=== PATIENT | female | born 1955 | race Caucasian/White ===

== ENCOUNTER 2022-11-14 10:56 | Day surgery (SDC) | payer MEDICARE, OTHER ==
[~2022-11-14 10:56] MED LIST: ALPRAZolam 0.25 MG TAB PO PRN; ALPRAZolam 0.5 MG TAB PO PRN; ASPIRIN 325 MG TAB PO STA; NITROGLYCERIN SL TABS 0.4 MG TAB SUBLINGUAL PRN; SODIUM CHLORIDE 0.9% 1,000 ML in EMPTY BAG 1 BAG IV SCH
[2022-11-14] MEDS ORDERED: lisinopriL 5 MG TAB PO STA (11:21)
[2022-11-14 11:39] VITALS: RESP 16; TEMP 97.9
[2022-11-14 11:54] LABS: Anisocytosis Slight; Basophils # (A) 0.1 k/uL (0-0.2); Basophils % (A) 1 %; Eosinophils # (A) 0.2 k/uL (0-0.7); Eosinophils % (A) 2 %; HCT 44.1 % (34.0-46.0); HGB 14.2 gm/dL (11.4-16.0); Lymphocytes # (A) 2.1 k/uL (1.0-4.8); Lymphocytes % (A) 22 %; MCH 27.3 pg (25.0-35.0); MCHC 32.3 g/dL (31.0-37.0); MCV 84.5 fL (80.0-100.0); Mean Platelet Volume 7.6; Monocytes # (A) 0.6 k/uL (0-1.0); Monocytes % (A) 6 %; Neutrophils # (A) 6.4 k/uL (1.3-7.7); Neutrophils % (A) 68 %; Platelet Count 268 k/uL (150-450); RBC 5.22 m/uL (3.80-5.40); RDW 16.4 % (11.5-15.5); WBC 9.5 k/uL (3.8-10.6)
[2022-11-14] MEDS ORDERED: IV FLUID CONTINUATION 1,000 ML IV ONE (11:55)
[2022-11-14] MEDS: BENZOCAINE SPRAY 1 CAN TOPICAL ONE ×2 (11:55→12:16)
[2022-11-14 11:56] LABS: African American GFR (CKD) >90 (>60 ml/min/1.73 sqM); Anion Gap 11 mmol/L; Blood Urea Nitrogen 8 mg/dL (7-17); Calcium 9.7 mg/dL (8.4-10.2); Carbon Dioxide 24 mmol/L (22-30); Chloride 105 mmol/L (98-107); Glucose 87 mg/dL (74-99); Non-African American GFR(CKD) >90 (>60 ml/min/1.73 sqM); Potassium 3.9 mmol/L (3.5-5.1); Sodium 140 mmol/L (137-145)
[2022-11-14] MEDS ORDERED: fentaNYL (PF) 50 MCG/ML 2 ML AMP ONE (12:03)
[2022-11-14] MEDS ORDERED: HEPARIN SODIUM 1,000 UN/ML (10ML VL) ONE (12:03)
[2022-11-14] MEDS ORDERED: MIDAZOLAM 2 MG/2 ML VIAL IV ONE ×2 (12:16→12:57)
[2022-11-14] MEDS: fentaNYL (PF) 50 MCG/1 ML VIAL IV ONE ×2 (12:17→13:04)
[2022-11-14] MEDS: MIDAZOLAM 2 MG/2 ML VIAL IV ONE ×2 (12:28→12:44)
--- NOTE | 2022-11-14 12:33 | P.PCN ---
Date of Procedure: 11/14/22 Operative Findings: TRANSESOPHAGEAL ECHOCARDIOGRAM DE ICER FINISHER: CRYSTAL JARVIS MD, RPVI INDICATION: Aortic stenosis SEDATION: Conscious sedation COMPLICATION: None LEVEL OF SEDATION Moderate with a sedation length of 15 minutes PROCEDURE DESCRIPTION: After obtaining an informed consent, the patient was brought to transesophageal echocardiogram room. Pulse oximetry and heart monitors were attached to the patient. The patient throat was sprayed using lidocaine. The patient was turned into left lateral position. After that a bite guard was placed. After an appropriate conscious sedation was initiated, the transesophageal echocardiogram was advanced through a bite guard into the mid esophagus. A 2-D echocardiogram images, color Doppler images, continuous wave images, pulse-wave images, of various cardiac structure were performed. After that the transesophageal echocardiogram probe was advanced into the stomach and fixed to obtain transgastric view was. The probe was brought into the mid esophagus. Inter-atrial septum was interrogated using 2D images, color Doppler images, and then contrast study. After that transesophageal echocardiogram was withdrawn out and upon withdrawing the descending thoracic aorta all the way up to the arch was evaluated. FINDING: The LV appeared to be mildly dilated was mildly impaired and an ejection fraction of 45%. The right ventricle appeared to be within normal limits for dimension and function. The left atrium and right atrium are severely dilated. The left atrial appendage appeared to be free from thrombus. The interatrial septum appeared to be intact. The aortic valve is thickened and calcified and appear to be trileaflet valve with evidence of severe aortic stenosis with a mean gradient of 44 mmHg. The mitral valve appeared to be also mildly thickened with mild to moderate MR. No evidence of pericardial effusion was identified CONCLUSION: 1. Mildly impaired LV function was EF around 45% 2. Severe aortic stenosis with a mean gradient of 44 mmHg. The aortic valve is thickened and calcified. Its hard to tell if the valve is trileaflet or bicuspid 3. [id number] mitral regurgitation 4. No evidence of pericardial effusion
[2022-11-14] MEDS ORDERED: LIDOCAINE 1% INJ 10MG/ML (5 ML VIAL-PF) SQ ONE (12:41)
[2022-11-14] MEDS ORDERED: VERAPAMIL SYRINGE (5 MG/10 ML) INTRAARTER ONE (12:44)
[2022-11-14] MEDS ORDERED: LIDOCAINE 1% INJ 10MG/ML (20 ML MDV) ONE (12:52)
[2022-11-14] MEDS ORDERED: LIDOCAINE 1% INJ 10MG/ML (20 ML MDV) SQ ONE (12:54)
[2022-11-14] MEDS ORDERED: IOPAMIDOL-370 100ML BTL INJ ONE (13:04)
[2022-11-14] MEDS ORDERED: RX INFO: IV CONTRAST WAS GIVEN 1 EACH MISC MISCELLANE PRN (13:07)
--- NOTE | 2022-11-14 13:12 | P.PCN ---
Date of Procedure: 11/14/22 Description of Procedure: CARDIAC CATHETERIZATION PERFORMING PHYSICIAN: Robert Thomas MD, RPVI PROCEDURE PERFORMED: 1. Selective right and left coronary angiogram 2. Ultrasound guided access of the right common femoral artery and right common femoral artery angiogram INDICATION: Aortic stenosis COMPLICATION: None APPROACH: Right common femoral artery LEVEL OF SEDATION: Moderate with sedation in length of 40 to minutes PROCEDURE DESCRIPTION: After obtaining an informed consent, the patient was brought to cardiac earth science laboratory technician. Local anesthesia was performed using lidocaine subcutaneously. Initially we accessed the right radial artery under ultrasound guidance, the micropuncture wire passed easily then I could not engage the coronary because of severe right subclavian tortuosity The right common femoral artery was cannulated using Seldinger technique, under ultrasound guidance, the guidewire passed easily, following that we advanced a 6 Tajik sheath dilator assembly, the wire and dilator were removed and sheath was flushed. Selective right and left coronary angiogram using a 6-Tajik JR4 and JL catheters. After that I did selective right common femoral artery angiogram The procedure was completed there was no complication. SELECTIVE CORONARY ANGIOGRAM: The right coronary artery: A large caliber vessel and a dominant vessel. The RCA has mild disease distally. Left main: Is angiographically normal. Bifurcates into LCx and LAD The left circumflex: The LCx is nondominant vessel was mild disease in the proximal portion The left anterior descending artery: Large-caliber vessel was mild diffuse disease only. Gives rises into a medium size diuretics with no high-grade stenosis identified CONCLUSION: 1. Mild to moderate nonobstructive coronary artery disease POSTPROCEDURE MANAGEMENT: The patient to be evaluated at the [facility]
[2022-11-14] MEDS ORDERED: SODIUM CHLORIDE 0.9% 1,000 ML IV SCH (13:15)
[2022-11-14] MEDS ORDERED: oxyCODONE ER 15 MG TAB.ER.12H PO STA (14:22)
[2022-11-14 16:40] VITALS: BP 181/77; PULSE 54
== END 2022-11-14 17:11 | disposition home or self-care (01) ==
LOC: CATHCVL 10:56
PROVIDERS: ATTEND Internal Medicine Interventional Cardiology
DX: I25.10 Atherosclerotic heart disease of native coronary artery without angina pectoris (principal); I08.0 Rheumatic disorders of both mitral and aortic valves; I48.0 Paroxysmal atrial fibrillation; E11.9 Type 2 diabetes mellitus without complications; I10 Essential (primary) hypertension; E78.5 Hyperlipidemia, unspecified; E78.2 Mixed hyperlipidemia; Z79.01 Long term (current) use of anticoagulants; Z79.82 Long term (current) use of aspirin; Z79.84 Long term (current) use of oral hypoglycemic drugs; Z79.85 Long-term (current) use of injectable non-insulin antidiabetic drugs; Z79.899 Other long term (current) drug therapy; Z88.2 Allergy status to sulfonamides; Z88.8 Allergy status to other drugs, medicaments and biological substances
CPT/HCPCS: 93312; 93320; 93325; 93454; 76937; 80048; 85025; 99152; 99153 ×2; C1769 ×4; C1760; C1894 ×2; J2250; J2001 ×2; Q9967; J3010

== ENCOUNTER → 2022-11-28 | Outpatient (CLI) | payer MEDICARE, OTHER ==
[2022-11-28 10:02] LABS: Anisocytosis Slight; Basophils # (A) 0.1 k/uL (0-0.2); Basophils % (A) 1 %; Eosinophils # (A) 0.4 k/uL (0-0.7); Eosinophils % (A) 4 %; HCT 43.9 % (34.0-46.0); Hypochromasia Slight; Lymphocytes # (A) 2.8 k/uL (1.0-4.8); Lymphocytes % (A) 30 %; MCH 27.6 pg (25.0-35.0); MCHC 31.8 g/dL (31.0-37.0); MCV 86.6 fL (80.0-100.0); Mean Platelet Volume 7.8; Monocytes # (A) 0.6 k/uL (0-1.0); Monocytes % (A) 6 %; Neutrophils # (A) 5.2 k/uL (1.3-7.7); Neutrophils % (A) 57 %; Platelet Count 293 k/uL (150-450); RBC 5.07 m/uL (3.80-5.40); RDW 16.3 % (11.5-15.5); WBC 9.2 k/uL (3.8-10.6)
[2022-11-28 10:17] LABS: Appearance,Urine Clear (Clear); Bilirubin,Urine Negative (Negative); Blood,Urine Negative (Negative); Color,Urine Light Yellow; Glucose,Urine (UA) 4+ (Negative); Ketones,Urine Negative (Negative); Leukocyte Esterase,Urine Trace (Negative); Nitrite,Urine Negative (Negative); Protein,Urine Negative (Negative); RBC,Urine 1 /hpf (0-5); Specific Gravity,Urine 1.018 (1.001-1.035); Squamous Epithelial Cell,Urine <1 /hpf (0-4); Urobilinogen,Urine <2.0 mg/dL (<2.0); WBC,Urine 5 /hpf (0-5)
[2022-11-28 10:27] LABS: Partial Thromboplastin Time 27.1 sec (22.0-30.0); Prothrombin Time 10.9 sec (9.0-12.0)
[2022-11-28 10:33] LABS: ALT 16 U/L (4-34); AST 25 U/L (14-36); African American GFR (CKD) 87 (>60 ml/min/1.73 sqM); Albumin 4.2 g/dL (3.5-5.0); Albumin/Globulin Ratio 1.2; Alkaline Phosphatase 105 U/L (38-126); Anion Gap 9 mmol/L; Blood Urea Nitrogen 11 mg/dL (7-17); Calcium 9.5 mg/dL (8.4-10.2); Carbon Dioxide 25 mmol/L (22-30); Chloride 105 mmol/L (98-107); Globulin 3.6 g/dL; Glucose 170 mg/dL (74-99); Magnesium 1.9 mg/dL (1.6-2.3); Non-African American GFR(CKD) 76 (>60 ml/min/1.73 sqM); Sodium 139 mmol/L (137-145); Total Bilirubin 0.7 mg/dL (0.2-1.3); Total Protein 7.8 g/dL (6.3-8.2)
[2022-11-28 10:35] LABS: Potassium 4.7 mmol/L (3.5-5.1)
[2022-11-28 10:40] LABS: NT-Pro-B-Type Natriuretic Pept 2300 pg/mL
--- NOTE | 2022-11-28 11:30 | US ---
EXAMINATION TYPE: US carotid duplex BILAT DATE OF EXAM: 11/28/2022 COMPARISON: NONE CLINICAL INDICATION: Female, 67 years old with history of I351; heart surgery TECHNIQUE: Carotid duplex ultrasound examination. Indirect Doppler criteria was utilized. FINDINGS: EXAM MEASUREMENTS: RIGHT: Peak Systolic Velocity (PSV) cm/sec ----- Right CCA: 41.6 ----- Right ICA: 67.7 ----- Right ECA: 54.6 ICA/CCA ratio: 1.6 RIGHT: End Diastole cm/sec ----- Right CCA: 0 ----- Right ICA: 19.8 ----- Right ECA: 0 LEFT: Peak Systolic Velocity (PSV) cm/sec ----- Left CCA: 56.5 ----- Left ICA: 120.5 ----- Left ECA: 50.7 ICA/CCA ratio: 2.1 LEFT: End Diastole cm/sec ----- Left CCA: 0 ----- Left ICA: 28.9 ----- Left ECA: 5.7 VERTEBRALS (direction of flow): Right Vertebral: Antegrade Left Vertebral: Antegrade Rhythm: Normal MUSHROOM PICKER NOTES: No significant stenosis seen IMPRESSION: Less than 50% stenosis of the bilateral carotid bifurcation. There is low to no flow during diastole involving the common carotid artery and right common carotid artery unsure if this is secondary to so nographer technique. Spectral waveforms do appear to go to 0. Criteria for Assigning % of Stenosis / Diameter reduction (Estimation based on the indirect measurements of the internal carotid artery velocities (ICA PSV). 1. Normal (no stenosis)=ICA PSV < 125 cm/s: ratio < 2.0: ICA EDV<40 cm/s. 2. Less than 50% stenosis=ICA PSV < 125 cm/s: ratio < 2.0: ICA EDV<40 cm/s. 3. 50 to 69% stenosis=ICA PSV of 125 to 230 cm/s: ration 2.0 ? 4.0: ICA EDV 40-100 cm/s. 4. Greater than 70% stenosis to near occlusion= ICA PSV > 230 cm/s: ratio > 4.0: ICA EDV > 100 cm/s. 5. Near occlusion= ICA PSV velocities may be low or undetectable: variable ratio and ICA EDV. 6. Total occlusion=unable to detect flow.
--- NOTE | 2022-11-28 13:50 | CT ---
EXAMINATION TYPE: CT TAVR Planning DATE OF EXAM: 11/28/2022 HISTORY: 67-year-old female Nonrheumatic aortic (Valve) insufficiency CT DLP: 3025.90 mGycm Automated Exposure Control for Dose Reduction was Utilized. CONTRAST: CT scan of the chest, abdomen and pelvis is performed with IV Contrast, patient injected with 125 mL of Isovue 370. COMPARISON: None TECHNIQUE: Helical imaging obtained through the chest, abdomen and pelvis during arterial phase leo brian administration of radiographic contrast intravenously. FINDINGS: See report from [email or web address] regarding preprocedural planning CHEST: Lower Neck and Thyroid: Retropharyngeal course of the bilateral ICAs. Heterogeneous and enlarged left lobe of the thyroid gland measuring up to 4.6 cm. Dedicated thyroid ultrasound to further evaluate. Lungs: Mild emphysematous change. Central Airway: No significant findings Pleura: No significant findings Pulmonary Arteries: Borderline caliber measuring up to 2.5 cm. This may reflect underlying pulmonary hypertension. Heart and Pericardium: Borderline size. No pericardial effusion. LAD and RCA coronary artery calcific ations are present. Lymph Nodes: Calcified right hilar nodes suggesting prior granulomatous disease. No thoracic lymph ad enopathy by CT size criteria. Mediastinum & Esophagus: No significant findings ABDOMEN/PELVIS: Please note arterial phase of the imaging limits detailed evaluation of the solid abdominal organs. Liver: No significant findings Spleen: No significant findings Kidneys: No significant findings Adrenal Glands: No significant findings Pancreas: No significant findings Gallbladder: Surgically absent. Bowel and Mesentery: Status post sleeve gastrectomy. Status post cholecystectomy. No dilated small chris wel. Mild sigmoid diverticulosis. Mild stool burden. No dilated small bowel, free fluid, or free air. Normal appendix. Lymph Nodes: No significant findings Urinary Bladder: No significant findings Pelvic Organs: No significant findings Other: 5.0 cm smooth, thin-walled oval fluid collection in the subcutaneous adipose layer along the u mbilicus. Some generalized anasarca change along the abdomen and pelvis. Other Lines/Tubes/Devices/Hardware: None Bones: End-stage [id number] degenerative change left shoulder. Severe degenerative change right curtis ulder. Anterior wedging of T6 and T7, age indeterminate but likely chronic given the lack of surround ing soft tissue swelling. Advanced spondylotic changes throughout the lumbar spine. IMPRESSION: 1. Heterogeneous and enlarged left lobe of the thyroid gland measuring up to 4.6 cm. Recommend furthe r evaluation with thyroid ultrasound to assess for any suspicious nodules that would warrant FNA. 2. COPD with mild emphysema and possible pulmonary arterial hypertension. 3. A 5 cm smooth, thin-walled oval fluid collection in the subcutaneous adipose layer along the umbil icus. The exact etiology is unclear. Possible urachal remnant. Correlate with physical exam findings. 4. Mild sigmoid diverticulosis.
[2022-11-28 16:47] LABS: Chol/HDL Ratio 3.99 Ratio; LDL Cholesterol,Calculated 90.8 mg/dL (0.0-131.0)
[2022-11-28 17:59] LABS: Hepatitis A Antibody IgM Nonreactive; Hepatitis B Core IgM Nonreactive; Hepatitis B Surface Antigen Nonreactive; Hepatitis C IgG Antibody Nonreactive
== END | disposition home or self-care (01) ==
LOC: LABWHC1 09:14
PROVIDERS: ATTEND Thoracic Surgery (Cardiothoracic Vascular Surgery)
DX: Z01.818 Encounter for other preprocedural examination (principal); Z51.81 Encounter for therapeutic drug level monitoring; I35.1 Nonrheumatic aortic (valve) insufficiency; E87.8 Other disorders of electrolyte and fluid balance, not elsewhere classified; I35.0 Nonrheumatic aortic (valve) stenosis; E11.9 Type 2 diabetes mellitus without complications; N28.9 Disorder of kidney and ureter, unspecified; E78.5 Hyperlipidemia, unspecified; Z79.899 Other long term (current) drug therapy; E07.9 Disorder of thyroid, unspecified; Z79.01 Long term (current) use of anticoagulants; R58 Hemorrhage, not elsewhere classified; R35.0 Frequency of micturition
CPT/HCPCS: 94150; 83880; 80061; 80053; 80074; 84443; 83735; 85025; 85610; 85730; 81001; 87086; 83036; 93880; 71275; 36415 ×2; 74174; 93005; Q9967

== ENCOUNTER 2022-12-20 06:18 | Inpatient (IN) | payer MEDICARE, OTHER ==
[~2022-12-20 06:18] MED LIST changes: -ALPRAZolam 0.25 MG TAB PO PRN; -ALPRAZolam 0.5 MG TAB PO PRN; +ASPIRIN 325 MG TAB PO ONE; -ASPIRIN 325 MG TAB PO STA; +ATORVASTATIN 10 MG TAB PO ONE; +CLEVIDIPINE BUTYRATE 25 MG in EMPTY BAG 1 BAG IV PRN; +CLOPIDOGREL 75 MG TAB PO ONE; +ELECTROLYTE-A SOLUTION 1,000 ML with POTASSIUM CHLORIDE 100 MEQ, MAGNESIUM SULFATE 16 M... IV PRN; +INSULIN REGULAR 100 UNIT in SODIUM CHLORIDE 0.9% 100 ML IV PRN; +LACTATED RINGERS 1,000 ML IV SCH; +METOPROLOL TARTRATE 25 MG TAB PO ONE; -NITROGLYCERIN SL TABS 0.4 MG TAB SUBLINGUAL PRN; +NITROGLYCERIN-D5W PMX 25 MG/250 ML BTL IV PRN; +PROTAMINE SULFATE 250 MG in EMPTY BAG 1 BAG IV PRN; -SODIUM CHLORIDE 0.9% 1,000 ML in EMPTY BAG 1 BAG IV SCH; +SODIUM CHLORIDE 0.9% 500 ML 500 ML INTRAARTER PRN; +TRANEXAMIC ACID 2,000 MG in SODIUM CHLORIDE 0.9% 80 ML IV PRN
[2022-12-20] MEDS ORDERED: SODIUM CHLORIDE 0.9% 1,000 ML IV ONE (06:35)
[2022-12-20 06:51] LABS: Glucose,Whole Blood 127 mg/dL (70-110)
[2022-12-20] MEDS ORDERED: fentaNYL (PF) 50 MCG/ML 2 ML AMP ONE (07:48)
[2022-12-20] MEDS ORDERED: PROPOFOL 10 MG/ML 20 ML VIAL IV ONE (07:48)
[2022-12-20] MEDS ORDERED: NEOSTIGMINE 1 MG/ML 10 ML VIAL ONE (07:48)
[2022-12-20] MEDS ORDERED: MIDAZOLAM 2 MG/2 ML VIAL ONE (07:48)
[2022-12-20] MEDS ORDERED: SUCCINYLCHOLINE CHLORIDE 200 MG/10 ML VIAL IV ONE (07:48)
[2022-12-20] MEDS ORDERED: GLYCOPYRROLATE 0.2 MG/ML 2 ML VIAL ONE (07:48)
[2022-12-20] MEDS ORDERED: hydrALAZINE HCL 20 MG/ML 1 ML VIAL ONE (07:48)
[2022-12-20] MEDS ORDERED: ROCURONIUM 10 MG/ML (5 ML VIAL) IV ONE (07:48)
[2022-12-20] MEDS ORDERED: ePHEDrine 50 MG/ML 1 ML VIAL ONE (07:48)
[2022-12-20] MEDS ORDERED: HEPARIN SODIUM,PORCINE 10,000 UNIT/ML 1 ML VIAL ONE (07:48)
[2022-12-20] MEDS ORDERED: PROTAMINE SULFATE 10 MG/ML 5 ML VIAL IV ONE (07:48)
[2022-12-20] MEDS ORDERED: LIDOCAINE 2% INJ 20 MG/ML (2 ML VIAL) ONE (07:48)
[2022-12-20] MEDS ORDERED: ACETAMINOPHEN TAB 325 MG TAB PO PRN (08:58)
[2022-12-20] MEDS ORDERED: ONDANSETRON 4 MG/2 ML VIAL IVP PRN (08:58)
[2022-12-20] MEDS ORDERED: IPRATROPIUM-ALBUTEROL 3 ML NEB INHALATION PRN (08:58)
[2022-12-20] MEDS ORDERED: LACTATED RINGERS 1,000 ML IV SCH (09:00)
[2022-12-20] MEDS ORDERED: DEXTROSE 50% SYRINGE 50 ML IVP PRN ×2 (09:04)
[2022-12-20] MEDS ORDERED: NON FORMULARY DRUG (Dulaglutide [Trulicity] 0.75 MG/0.5 ML Each) SQ SCH (09:15)
[2022-12-20] MEDS ORDERED: IOPAMIDOL-370 100ML BTL INJ ONE (09:19)
--- NOTE | 2022-12-20 09:24 | P.PCN ---
Date of Procedure: 12/20/22 Operative Findings: TRANSCATHETER AORITC VALVE REPLACEMENT OPERATIVE REPORT PROCEDURE PERFORMED: 1. Percutaneous Aortic Valve Implantation using a 23 mm Bagley Adama Valve 2. Transesophageal echocardiography (performed by anesthesia) 3. Ultrasound guided access and repair of right femoral artery access site by Perclose closure device. 4. Placement of temporary pacemaker wire. 5. Aortic root angiography INDICATIONS: 1. 67 year-old with a history of severe symptomatic aortic valve stenosis. The patient was experiencing shortness of breath consistent with NYHA class II PERFORMING PHYSICIANS: 1. Robert Thomas MD Interventional Cardiology. 3. Jose Swartz MD, Cardiothoracic Surgeon. SEDATION: General anesthesia provided by anesthesia, see separate note APPROACH: Right and left femoral artery via percutaneous approach PROCEDURE DESCRIPTION: The patient was discussed at valve clinic with multidisciplinary approach with cardiothoracic surgeon as well as turning sander operator and thought better treated with TAVR. Risks, benefits, and alternatives of the procedure had been explained to the patient who understood the risks and agreed to proceed. After consents were obtained, patient was brought to the transcatheter aortic valve implantation room in the cardiac boot and shoe laborer and general anesthesia was provided by the anesthesiologist (see separate report). Once full body sterile prep was performed, right subclavian venous access was obtained and a temporary pacemaker was screwed in, performed by cardiothoracic surgery. Pacing threshholds were checked and deemed appropriate. Next the left femoral artery waw accessed using a modified Seldinger technique, ultrasound guidance and micropuncture technique. A 6 [place] Rabi sheath was placed in the left femoral artery. Next, a 6-[place] pigtail catheter was advanced into the aorta and positioned in the aortic root, aortic root angiography was performed to determine optimal deployment angle. The right femoral artery was accessed using modified Seldinger technique, micropuncture technique and under direct ultrasound guidance. Femoral angiogram was done showing access in the common femoral artery and a 6Fr sheath was placed. Next preclose technique was performed using a two Perclose. Next a 0.035 Safari wire was placed in the Aorta via a pigtail catheter. Next a 6F- AL1 catheter was advanced over a wire to the aortic root. A straight wire was advanced through the catheter and used to cross the severely stenotic valve. The AL1 was then exchanged for a 6Fr pigtail catheter and pressure measurements were obtained. The 0.035 Safari wire was then positioned in the apex. Next a 23 mm Bagley was advanced. The valve was then positioned across the aortic valve and confirmed with aortic root angiography. The valve was then deployed in proper position using slow deployment and with rapid pacing in conjuncture with aortic root angiography and SARAH. The delivery system was withdrawn back into the arch and an aortic root injection in conjunction with SARAH demonstrated a satisfactory result. There was mild para valvular leak. There was no evidence of any other significant abnormalities. The preclose Perclose was then deployed in the right femoral artery and hemostasis was achieved. Subsequently rim catheter was advanced from the left groin were we did selective right common femoral artery angiogram and that showed good hemostasis. The left femoral angiogram demonstrated an arteriotomy in the common femoral artery and this was repaired using a 6F angioseal device with complete hemostasis. The temporary venous pacemaker was sutured in place. The patient was then transported to the ICU in hemodynamically stable condition, requiring no pressor support. COMPLICATIONS: None RECOMMENDATIONS: The patient will be monitored in the ICU for hemodynamic and electrical stability. Patient will be on aspirin and Plavix.
[2022-12-20 09:49] LABS: Glucose,Whole Blood 95 mg/dL (70-110)
--- NOTE | 2022-12-20 09:56 | XR ---
EXAMINATION TYPE: XR chest 1V portable DATE OF EXAM: 12/20/2022 9:49 AM COMPARISON: CT TAVR planning 11/28/2022 TECHNIQUE: XR chest 1V portable Portable AP radiograph of the chest. CLINICAL INDICATION:Female, 67 years old with history of Post Operative Cardiac Surgery; FINDINGS: Lungs/Pleura: There is no evidence of pleural effusion, focal consolidation, or pneumothorax. Chroni c senescent parenchymal change. Pulmonary vascularity: Unremarkable. Heart/mediastinum: Cardiomediastinal silhouette is enlarged. Postsurgical changes from TAVR. Musculoskeletal: No acute osseous pathology. Bilateral shoulder arthropathy. IMPRESSION: Postsurgical changes from TAVR. No focal consolidation.
[2022-12-20 10:09] LABS: Anisocytosis Slight; Basophils # (A) 0.1 k/uL (0-0.2); Basophils % (A) 1 %; Eosinophils # (A) 0.3 k/uL (0-0.7); Eosinophils % (A) 4 %; HCT 36.6 % (34.0-46.0); Hypochromasia Slight; Lymphocytes # (A) 2.5 k/uL (1.0-4.8); Lymphocytes % (A) 30 %; MCH 27.9 pg (25.0-35.0); MCHC 32.8 g/dL (31.0-37.0); MCV 85.2 fL (80.0-100.0); Mean Platelet Volume 7.8; Monocytes # (A) 0.4 k/uL (0-1.0); Monocytes % (A) 4 %; Neutrophils # (A) 4.8 k/uL (1.3-7.7); Neutrophils % (A) 59 %; Platelet Count 204 k/uL (150-450); RBC 4.29 m/uL (3.80-5.40); RDW 16.2 % (11.5-15.5); WBC 8.1 k/uL (3.8-10.6)
[2022-12-20 10:18] LABS: Ionized Calcium 4.9 mg/dL (4.5-5.3)
[2022-12-20 10:22] LABS: INR 1.2 (<1.2); Partial Thromboplastin Time 28.3 sec (22.0-30.0); Prothrombin Time 12.3 sec (9.0-12.0)
[2022-12-20 10:24] LABS: ALT 17 U/L (4-34); AST 25 U/L (14-36); African American GFR (CKD) >90 (>60 ml/min/1.73 sqM); Alkaline Phosphatase 85 U/L (38-126); Anion Gap 6 mmol/L; Blood Urea Nitrogen 8 mg/dL (7-17); Calcium 8.2 mg/dL (8.4-10.2); Carbon Dioxide 24 mmol/L (22-30); Chloride 108 mmol/L (98-107); Glucose 97 mg/dL (74-99); Magnesium 1.8 mg/dL (1.6-2.3); Non-African American GFR(CKD) >90 (>60 ml/min/1.73 sqM); Potassium 3.5 mmol/L (3.5-5.1); Sodium 138 mmol/L (137-145); Total Bilirubin 0.6 mg/dL (0.2-1.3)
[2022-12-20 11:31] LABS: Glucose,Whole Blood 94 mg/dL (70-110)
--- NOTE | 2022-12-20 11:44 | P.ANPRN ---
Procedure Note - Anesthesia - SARAH Intraop Pre Bypass SARAH Intraop - Anesthesia Indication: Transcatheter aortic valve replacement Date of Procedure: 12/20/22 Pre-operative Diagnosis: Severe aortic stenosis Post-operative Diagnosis: Severe aortic stenosis status post transcatheter aortic valve replacement Surgeon: Jose Swartz Ejection Fraction: Other (45 to 50%) Regional Wall Motion Abnormalities: None Left Ventricle Hypertrophy: No R. Ventricle Function: Normal Aortic Valve: calcified aortic valve with peak gradient of 62 mm of Hg and mean gradient of 42 mmHg Anatomy: Trileaflet Aortic Stenosis: Severe Aortic Regurgitation: None Mitral Stenosis: None Mitral Regurgitation: Trace Tricuspid Stenosis: None Tricuspid Regurgitation: Trace Pulmonic Stenosis: None Pulmonic Regurgitation: None R. Atrial Dilation: No R. Atrial PFO: No L. Atrial Dilation: No Aortic Dissection: No Aortic Calcification: None Plural Effusion: None
--- NOTE | 2022-12-20 11:45 | P.OP ---
Date of Procedure: 12/20/22 Preoperative Diagnosis: Symptomatic tricuspid calcific aortic stenosis Postoperative Diagnosis: Same Procedure(s) Performed: Percutaneous transfemoral transcatheter aortic valve replacement with 23 mm Bagley Adama 2 transcatheter aortic valve prosthesis Implants: 23 mm Bagley Adama 2 valve prosthesis Anesthesia: GETA Surgeon: Jose Swartz (Cardiovascular surgeon) Hot Dip Galvanizer #1: Robert Thomas (sports nutritionist) Hot Dip Galvanizer #2: Sanjay Amezcua (Nurse practitioner) Estimated Blood Loss (ml): 10 IV fluids (ml): 1,000 Pathology: none sent Condition: stable Disposition: ICU Indications for Procedure: 67-year-old morbidly obese woman with or performance status presents withworsening dyspnea and known severe aortic valvular stenosis. She was felt to be high risk for surgery given her extreme morbid obesity and poor performance status and was recommended to undergo transcatheter aortic valve replacement. Operative Findings: Significant gradient was noted across the aortic valve. Post valve deployment SARAH demonstrated trivial aortic insufficiency with excellent valve positioning and expansion. Completion angiography showed good flow through the femoral system with no evidence of leak and no narrowing. Description of Procedure: Patient was brought to the cardiac catheterization laboratory placed supine on the table. General anesthesia was induced, patient was intubated and SARAH probe was placed. The anterior torso and bilateral groins were sterilely prepped and draped. Right subclavian vein was punctured with an 18-gauge needle and guidewire was placed into the right atrium and introducer sheath was placed and a screw-in ventricular lead was manipulated into the apex of the right ventricle and secured at its exit site from the skin. It was tested and noted to have excellent thresholds and good capture. Bilateral femoral access was obtained under ultrasound guidance. On the left long 6-Guyanese sheath was placed up into the descending thoracic aorta. On the right 6-Guyanese sheath was placed and then 2 Perclose devices were placed an 8-Guyanese sheath was placed and this was exchanged for a 14 Bagley sheath over a stiff wire. The patient was systemically heparinized and a CTs were maintained greater than 250 during the procedure. Pigtail catheter was threaded through the left groin into the right coronary cusp and the valve was crossed from the right side. Pigtail catheter placed in the apex of the ventricle. Transvalvular gradients were measured. Safari wire was placed in the apex of the ventricle. 23 mm Bagley Adama 2 valve had been loaded on the back table and the valve delivery system was brought up onto the field. Was advanced over the Safari wire into the descend ing thoracic aorta. The balloon was pulled back into the valve and then the valve was advanced around the aortic arch and across the aortic valve. Pressure was pulled back and the valve positioned and then deployed under rapid ventricular pacing. Excellent deployment was obtained with trivial paravalvular leak on SARAH. The deployment system was pulled back and out of the patient. Heparin was reversed with protamine. The 47-Guyanese sheath was removed from the right groin and the 2 Perclose devices secured with excellent hemostasis. Completion angiography demonstrated good flow through the femoral system with no leak. Sheath was removed on the left and the femoral artery closed with an Angio-Seal. Good hemostasis was noted throughout and the patient was awakened and transferred to the ICU in stable condition.
--- NOTE | 2022-12-20 11:46 | P.ANPRN ---
Procedure Note - Anesthesia - SARAH Intraop Post Bypass SARAH Intraop Post Bypass Procedure Performed: Transcatheter aortic valve replacement Ejection Fraction: Other (44-50%) Regional Wall Motion Abnormalities: None R. Ventricle Function: Normal Aortic Valve: Prosthetic aortic valve in situ, appears to be seated well. Mean gradient across the valve is 6 mm of Hg. Peak gradient 12 mmHg. Trace paravalvular aortic regurgitation seen. Mitral Valve: Unchanged Tricuspid: Unchanged Pulmonic: Unchanged Aortic Dissection: No
[2022-12-20] MEDS: oxyCODONE ER 15 MG TAB.ER.12H PO SCH ×2 (12:12→20:13)
[2022-12-20] MEDS: INSULIN ASPART (NovoLOG) 100 UNIT/ML VIAL SQ SCH ×3 (12:14→21:13)
[2022-12-20] MEDS ORDERED: POTASSIUM CHLORIDE ER 20 MEQ TAB.ER PO STA (14:13)
[2022-12-20 14:57] VITALS: BMI 54.2
[2022-12-20 16:35] LABS: Glucose,Whole Blood 110 mg/dL (70-110)
[2022-12-20 21:00] LABS: Glucose,Whole Blood 113 mg/dL (70-110)
[2022-12-20] MEDS ORDERED: DAPAGLIFLOZIN PROPANEDIOL 10 MG TABLET PO SCH (21:00)
[2022-12-20] MEDS ORDERED: SENNOSIDES-DOCUSATE SODIUM 1 EACH TAB PO SCH (21:00)
[2022-12-20] MEDS ORDERED: INSULIN DETEMIR (LEVEMIR) 100 UNIT/ML SYR SQ SCH (21:00)
[2022-12-20] MEDS: HEPARIN SODIUM,PORCINE/PF 5,000 UNIT/0.5 ML SYRINGE SQ SCH (23:16)
--- NOTE | 2022-12-21 04:16 | CONS ---
CONSULTATION CHIEF COMPLAINT: Aortic stenosis. HISTORY OF PRESENT ILLNESS: This is a 67-year-old obese female who was brought in for an elective aortic valve replacement for aortic stenosis which has been symptomatic. REVIEW OF SYSTEMS: She has had no syncope, neurologic problems, chest pain, shortness of breath, abdominal pain, nausea, vomiting, diarrhea, melena, hematochezia, jaundice, renal failure, dysuria, frequency, urgency, incontinence, etc. Past medical history, family history and personal and social histories can all be found in her admitting summary. PHYSICAL EXAMINATION: VITAL SIGNS: Blood pressure is 118/72 with a pulse of 83 and regular, respirations are 25 and she is afebrile. GENERAL: She appeared to be obese. Color was good. Skin was dry. HEAD, EARS, EYES, NOSE, MOUTH AND THROAT: Normal. CHEST: Clear with good breath sounds bilaterally. CARDIAC: Demonstrated sinus rhythm. ABDOMEN: Protuberant. EXTREMITIES: Normal. IMPRESSION: 1. Aortic stenosis. 2. Obesity. PLAN: No change in her planned intervention. MMODL / IJN: [id number] /
[2022-12-21 06:40] LABS: Glucose,Whole Blood 92 mg/dL (70-110)
[2022-12-21] MEDS: INSULIN ASPART (NovoLOG) 100 UNIT/ML VIAL SQ SCH ×2 (06:59→12:06)
[2022-12-21] MEDS ORDERED: PANTOPRAZOLE 40 MG TABLET PO SCH (07:30)
--- NOTE | 2022-12-21 07:43 | XR ---
EXAMINATION TYPE: XR chest 1V portable DATE OF EXAM: 12/21/2022 Comparison: 12/20/2022 Clinical History: 67-year-old female Post Operative Cardiac Surgery Findings: Endovascular aortic valve replacement noted. Heart borderline in size. Interstitial densities remain unchanged. No consolidation or pleural effusion. Extrarenal right sided right ventricular pacer lead. Impression: Similar interstitial densities, possible mild pulmonary vascular congestion.
[2022-12-21] MEDS: oxyCODONE ER 15 MG TAB.ER.12H PO SCH (08:22)
[2022-12-21] MEDS: HEPARIN SODIUM,PORCINE/PF 5,000 UNIT/0.5 ML SYRINGE SQ SCH (08:22)
[2022-12-21] MEDS ORDERED: ASPIRIN 81 MG PO SCH (09:00)
[2022-12-21] MEDS ORDERED: MAGNESIUM HYDROXIDE 2,400 MG/30 ML CUP PO PRN (09:00)
[2022-12-21] MEDS ORDERED: bisacodyL 10 MG SUPP RECTAL PRN (09:00)
[2022-12-21] MEDS ORDERED: DAPAGLIFLOZIN PROPANEDIOL 10 MG TABLET PO SCH (09:00)
[2022-12-21] MEDS ORDERED: PREGABALIN 25 MG CAP PO SCH (09:00)
[2022-12-21] MEDS ORDERED: lisinopriL 5 MG TAB PO SCH (09:00)
[2022-12-21] MEDS ORDERED: RIVAROXABAN 2.5 MG TABLET PO SCH (09:00)
[2022-12-21] MEDS ORDERED: ATORVASTATIN 40 MG TAB PO SCH (09:00)
[2022-12-21 11:13] LABS: ALT 16 U/L (4-34); AST 37 U/L (14-36); African American GFR (CKD) >90 (>60 ml/min/1.73 sqM); Albumin 3.7 g/dL (3.5-5.0); Alkaline Phosphatase 91 U/L (38-126); Anion Gap 10 mmol/L; Blood Urea Nitrogen 7 mg/dL (7-17); Calcium 8.9 mg/dL (8.4-10.2); Carbon Dioxide 21 mmol/L (22-30); Chloride 105 mmol/L (98-107); Glucose 83 mg/dL (74-99); Magnesium 1.9 mg/dL (1.6-2.3); Non-African American GFR(CKD) >90 (>60 ml/min/1.73 sqM); Sodium 136 mmol/L (137-145); Total Bilirubin 0.8 mg/dL (0.2-1.3); Total Protein 7.2 g/dL (6.3-8.2)
[2022-12-21 11:20] LABS: Potassium 4.7 mmol/L (3.5-5.1)
--- NOTE | 2022-12-21 11:22 | CA ---
Transthoracic Echo Report Name: Dannielle Landry Age: 67 Gender: F : 1955 Exam Date: 12/21/2022 07:58 Exam Location: [facility] Ht (in): 58 Wt (lb): 259 Ordering Physician: Prachi Alvarez Attending/Referring Phys: [id number], Kim Pediatric Assistant Araceli Figueroa RDCS Procedure CPT: Indications: post TAVR Cardiac Hx: TAVR Technical Quality: Technically difficult study Contrast 1: Lumason Total Dose (mL): 3 Contrast 2: Total Dose (mL): MEASUREMENTS (Male / Female) Normal Values 2D ECHO LV Diastolic Diameter PLAX 4.6 cm 4.2 - 5.9 / 3.9 - 5.3 cm LV Systolic Diameter PLAX 3.1 cm IVS Diastolic Thickness 1.5 cm 0.6 - 1.0 / 0.6 - 0.9 cm LVPW Diastolic Thickness 1.4 cm 0.6 - 1.0 / 0.6 - 0.9 cm LV Relative Wall Thickness 0.6 RV Internal Dim ED PLAX 2.6 cm LVOT Diameter 1.9 cm LA Systolic Diameter LX 3.5 cm 3.0 - 4.0 / 2.7 - 3.8 cm LV Diastolic Volume MOD BP 79.7 cm??? 67 - 155 / 56 - 104 cm??? LV Systolic Volume MOD BP 24.1 cm??? 22 - 58 / 19 - 49 cm??? LV Ejection Fraction MOD BP 69.8 % >= 55 % LV Cardiac Index MOD BP 1246.2 cm???/min???m??? LV Diastolic Volume MOD 4C 81.5 cm??? LV Systolic Volume MOD 4C 21.3 cm??? LV Ejection Fraction MOD 4C 73.9 % LV Cardiac Index MOD 4C 1348.4 cm???/min???m??? LV Diastolic Length 4C 8.2 cm LV Systolic Length 4C 6.7 cm LV Diastolic Volume MOD 2C 76.6 cm??? LV Systolic Volume MOD 2C 27.3 cm??? LV Ejection Fraction MOD 2C 64.4 % LV Cardiac Index MOD 2C 1104.4 cm???/min???m??? LV Diastolic Length 2C 8.4 cm LV Systolic Length 2C 6.7 cm LA Volume 84.0 cm??? 18 - 58 / 22 - 52 cm??? M-MODE Aortic Root Diameter MM 3.2 cm MV E Point Septal Separation 0.5 cm DOPPLER AV Peak Velocity 257.2 cm/s AV Peak Gradient 26.5 mmHg AV Mean Velocity 199.2 cm/s AV Mean Gradient 17.2 mmHg AV Velocity Time Integral 60.9 cm LVOT Peak Velocity 157.8 cm/s LVOT Peak Gradient 10.0 mmHg AV Area Cont Eq pk 1.7 cm??? MV Area PHT 4.4 cm??? MV Deceleration Time 196.3 ms TR Peak Velocity 237.1 cm/s TR Peak Gradient 22.5 mmHg Right Ventricular Systolic Press 25.9 mmHg FINDINGS Left Ventricle Left ventricular ejection fraction is estimated at 55-60 %. Left ventricular cavity size normal. Moderately increased septal wall thickness. Moderately increased posterior wall thickness. Normal left ventricular wall motion. Right Ventricle Normal right ventricular size. Right ventricular systolic pressure within normal limits. Right Atrium Normal right atrial size. Left Atrium Severely increased left atrial volume. Mildly increased left atrial area. Mitral Valve Structurally normal mitral valve. No mitral stenosis, or prolapse.mild mitral annular calcification. Mild mitral regurgitation Aortic Valve Post TAVR AOV with a peak gradient of 27 mmHg and a mean gradient of 17 mmHg. Peak velocity 257 cm/s Tricuspid Valve Tricuspid valve not well visualized. Mild tricuspid regurgitation. Pulmonic Valve Pulmonic valve not well visualized. Pericardium Normal pericardium. No pericardial effusion. Aorta Normal size aortic root and proximal ascending aorta. CONCLUSIONS Technically difficult study. Lumason ECHO contrast used for improved visualization of the endocardial borders (inadequate visualization of two or more contiguous segments). 1. Normal left ventricle size and systolic function 2. Bioprosthetic aortic valve with mean gradient of 17 mmHg and no evidence of regurgitation 4. Mild tricuspid and mitral regurgitation Previewed by: Dr. Lore Gonzalez MD (Electronically Signed) Final Date: 21 December 2022 11:21
[2022-12-21 11:28] LABS: Ionized Calcium 4.6 mg/dL (4.5-5.3)
[2022-12-21 11:50] LABS: Glucose,Whole Blood 78 mg/dL (70-110)
[2022-12-21 11:51] LABS: Anisocytosis Slight; Basophils # (A) 0.1 k/uL (0-0.2); Basophils % (A) 1 %; Eosinophils # (A) 0.1 k/uL (0-0.7); Eosinophils % (A) 2 %; HCT 37.8 % (34.0-46.0); HGB 12.7 gm/dL (11.4-16.0); Lymphocytes # (A) 1.2 k/uL (1.0-4.8); Lymphocytes % (A) 16 %; MCH 28.2 pg (25.0-35.0); MCHC 33.6 g/dL (31.0-37.0); MCV 83.9 fL (80.0-100.0); Mean Platelet Volume 8.5; Monocytes # (A) 0.6 k/uL (0-1.0); Monocytes % (A) 9 %; Neutrophils # (A) 5.1 k/uL (1.3-7.7); Neutrophils % (A) 71 %; Platelet Count 177 k/uL (150-450); RDW 16.6 % (11.5-15.5); WBC 7.2 k/uL (3.8-10.6)
--- NOTE | 2022-12-21 12:48 | P.DS ---
Providers Date of admission: 12/20/22 06:18 Expected date of discharge: 12/21/22 Attending physician: Robert Thomas Consults: 12/20/22 06:00 Consult to Anesthesia Routine Consulting Provider: Anesthesia,Services Consult Reason/Comments: Cardiac Surgery Pre-Op 12/20/22 08:06 Consult Physician Routine Consulting Provider: Jose Swartz Consult Reason/Comments: post TAVR Do you want consulting provider notified?: Already Contacted Primary care physician: Red Puente Hospital Course: MEDICAL HISTORY: Calcified aortic valve with severe symptomatic aortic valve stenosis Hypertension Hyperlipidemia Diabetes mellitus type 2 Persistent paroxysmal atrial fibrillation on Xarelto on an outpatient basis Morbid obesity with a BMI of 54.2 kg/m Chronic back pain Lifetime nonsmoker PROCEDURE: 1. Percutaneous aortic valve implantation using a 23 mm Bagley Adama valve under SARAH and fluoroscopy guidance 2. Transesophageal echocardiography performed by anesthesia 3. Ultrasound-guided access and repair of right femoral artery access site by Perclose closure device 4. Placement of temporary pacemaker wire 5. Aortic root angiography HISTORY OF PRESENT ILLNESS: This is a 67-year-old female patient who follows on an outpatient basis with Dr. Puente for primary care and Dr. Thomas for her cardiology care. She has a known history of severe aortic valve stenosis and has been symptomatic with increased exertional dyspnea as well as feeling fatigue. She had been referred to structural heart clinic for evaluation for transcatheter aortic valve replacement after heart catheterization and transesophageal echocardiogram were completed. Echocardiography demonstrated systolic function with EF 45%, aortic valve area 0.7 cm with a peak/mean g radient 83/44 mmHg. Heart catheterization showed mild nonobstructive coronary artery disease. After workup was completed an STS risk score was calculated along with incremental risk and the patient was felt to be an intermediate risk for surgical aortic valve replacement, therefore transcatheter aortic valve replacement was recommended. The usual course of TAVR was discussed in detail the patient, risks and benefits were reviewed, shared decision making between cardiology, cardiothoracic surgery, and the patient/family took place, and the patient consented to proceed with the TAVR procedure. HOSPITAL COURSE: The patient was brought to the hospital on 12/20/2022, was taken to the extended stay area, prepared in the usual fashion, and subsequently taken to the cardiac catheterization laboratory where Dr. Thomas and Dr. Swartz completed a TAVR procedure under general anesthesia with fluoroscopy and SARAH. The valve was deployed under rapid ventricular pacing and proceeded without event. At the end of the procedure there was peak/mean gradient of 12/6 mmHg, trace paravalvular aortic valve regurgitation, and hemodynamics were felt to be acceptable. Upon completion of the procedure the patient was extubated and was transferred to the cardiovascular intensive care unit where she was recovered and monitored hemodynamically. Her oxygen was titrated down, she was tolerating an oral diet, her pain was controlled, follow-up TTE demonstrated a left ventricular systolic function to be normal with an ejection fraction of 55-60%, it also demonstrated post-TAVR AOV with a peak gradient of 27 mmHg, a mean gradient of 17 mmHg and a peak philosophy of 257 cm/s and she was ready to be discharged to home on postoperative day #1. She received written and verbal instruction regarding his medications, activity restrictions, signs and symptoms requiring physician notification, and her follow-up appointments. Plan - Discharge Summary Discharge Rx Participant: No New Discharge Prescriptions: New Acetaminophen Tab [Tylenol] 650 mg PO Q4HR PRN tab PRN Reason: Fever And/ Or Mild Pain (1-3) Sennosides-Docusate Sodium [Senokot-S] 2 each PO HS PRN tab PRN Reason: Constipation Continue lisinopriL [Zestril] 5 mg PO DAILY Rivaroxaban [Xarelto] 2.5 mg PO BID Pregabalin 25 mg PO DAILY Insulin Detemir (Levemir) [Levemir] 60 units SQ HS Dulaglutide [Trulicity] 0.75 mg SQ WE Dapagliflozin Propanediol [Farxiga] 1 tab PO HS oxyCODONE HCL [OxyCONTIN] 30 mg PO Q12H Discharge Medication List Dapagliflozin Propanediol [Farxiga] 1 tab PO HS 11/09/22 [History] Dulaglutide [Trulicity] 0.75 mg SQ WE 11/09/22 [History] Insulin Detemir (Levemir) [Levemir] 60 units SQ HS 11/09/22 [History] Pregabalin 25 mg PO DAILY 11/09/22 [History] Rivaroxaban [Xarelto] 2.5 mg PO BID 11/09/22 [History] lisinopriL [Zestril] 5 mg PO DAILY 11/09/22 [History] oxyCODONE HCL [OxyCONTIN] 30 mg PO Q12H 11/09/22 [History] Acetaminophen Tab [Tylenol] 650 mg PO Q4HR PRN tab 12/20/22 [Rx] Sennosides-Docusate Sodium [Senokot-S] 2 each PO HS PRN tab 12/20/22 [Rx] Follow up Appointment(s)/Referral(s): Red Puente MD [Primary Care Provider] - As Needed Robert Thomas MD [STAFF PHYSICIAN] - 01/02/23 1:45 pm (Your appointment 01/02 is for groin check with Dr. Thomas. You also have 30 day and 1 year follow up echo and appointments as scheduled: 30 day echo 02/26/23 @ 2:45 pm 30 day appointment w/ Dr. Thomas 02/26/23 @ 7:45 am 1 year echo 12/11/23 @ 2:30 pm 1 year appointment w/ Dr. Thomas 12/11/23 @ 11:15 am at the [facility] Clinic,Structural Heart [NON-STAFF] - 02/26/23 2:00 pm (you also have a TAVR clinic appointment 12/11/23 @ 12:30 pm) Ambulatory/Diagnostic Orders: Complete Blood Count w/diff [LAB.AMB] Location: None Selected Complete Blood Count w/diff [LAB.AMB] Location: None Selected Comprehensive Metabolic Panel [LAB.AMB] Location: None Selected Comprehensive Metabolic Panel [LAB.AMB] Location: None Selected Activity/Diet/Wound Care/Special Instructions: DISCHARGE INSTRUCTIONS: 1. No driving for 1 week, or until physician gives their ok. 2. No lifting, pushing, or pulling more than 5-10 pounds for 1 week. 3. Hold both groins when you cough or sneeze for the next 2 weeks. Bruising is common, but report increased swelling, pain or fever >101F 4. Shower daily. No pool, hot tub, or bathtub for 1 week 5. No powders, lotions, ointments on incisions. 6. No straining, including for bowel movements. Use stool softner if necessary 7. Stairs are not an issue. Go slowly, using handrail and take 1 step at a time. Ambulate several times daily 8. Continue pain control per as needed orders. 9. Take only the medications listed on your discharge form 10. Eat low salt (limited to 2 grams or 2000 milligrams) daily, avoid adding salt, avoid canned/processed foods 11. Take your weight daily in the morning and record, bring with you to your follow up appointments 12. Keep all follow up appointments. You will need a valve clinic appointment at 30 days and 1 year post procedure for follow up 13. You have been referred to and are expected to begin Cardiac Rehab in approximately 4 weeks. For any questions or concerns please call your valve coordinators: Prachi or Elvin @ Discharge Disposition: HOME SELF-CARE
[2022-12-21 13:22] VITALS: BP 138/90; PULSE 52; RESP 18; TEMP 98
--- NOTE | 2022-12-21 19:58 | PN ---
PROGRESS NOTE DATE OF SERVICE: 12/21/2022 CHIEF COMPLAINT: Status post TAVR. HISTORY OF PRESENT ILLNESS: This lady is doing well and is having no problems. She expects to go home soon. PHYSICAL EXAMINATION: CHEST: Clear. CARDIAC: Normal with sinus rhythm. VITAL SIGNS: Normal. NEUROLOGIC: She is intact. IMPRESSION: Status post transcatheter aortic valve replacement for aortic valve stenosis. PLAN: Probably home today. MMODL / IJN: [id number] /
== END 2022-12-21 13:58 | disposition home or self-care (01) | DRG 267 ==
LOC: 2ORMAIN 06:18 → 2SICU 09:01
PROVIDERS: ADMIT Internal Medicine Interventional Cardiology; ATTEND Internal Medicine Interventional Cardiology
PROC: 5A1223Z Performance of Cardiac Pacing, Continuous (ICD-10-PCS; 2022-12-20)
PROC: 02HK3JZ Insertion of Pacemaker Lead into Right Ventricle, Percutaneous Approach (ICD-10-PCS; 2022-12-20)
PROC: 02H63JZ Insertion of Pacemaker Lead into Right Atrium, Percutaneous Approach (ICD-10-PCS; 2022-12-20)
PROC: 02RF38N Replacement of Aortic Valve with Zooplastic Tissue, using Rapid Deployment Technique, Percutaneous Approach (ICD-10-PCS; principal; 2022-12-20 08:00)
PROC: B24BZZ4 Ultrasonography of Heart with Aorta, Transesophageal (ICD-10-PCS; 2022-12-20 08:00)
DX: I35.0 Nonrheumatic aortic (valve) stenosis (principal); Z00.6 Encounter for examination for normal comparison and control in clinical research program; I48.19 Other persistent atrial fibrillation; Z68.43 Body mass index [BMI] 50.0-59.9, adult; E66.01 Morbid (severe) obesity due to excess calories; E11.9 Type 2 diabetes mellitus without complications; I10 Essential (primary) hypertension; E78.5 Hyperlipidemia, unspecified; G89.29 Other chronic pain; I25.10 Atherosclerotic heart disease of native coronary artery without angina pectoris; M54.9 Dorsalgia, unspecified; R53.83 Other fatigue; Z79.4 Long term (current) use of insulin; Z79.01 Long term (current) use of anticoagulants; Z79.85 Long-term (current) use of injectable non-insulin antidiabetic drugs; Z79.84 Long term (current) use of oral hypoglycemic drugs; Z79.899 Other long term (current) drug therapy; Z79.891 Long term (current) use of opiate analgesic
CPT/HCPCS: 71045; 80053; 82330; 83735; 85025; 85610; 85730; 86850; 86900; 86901; 93306; 93312; 93320; 93325

== ENCOUNTER 2023-09-12 10:26 | Day surgery (SDC) | payer MEDICARE, OTHER ==
[2023-09-11 11:13] VITALS: BMI 50.1
[2023-09-12] MEDS: SODIUM CHLORIDE 0.9% 500 ML 500 ML IV ONE (10:39)
[2023-09-12 11:06] LABS: Glucose,Whole Blood 174 mg/dL (70-110)
[2023-09-12 11:09] LABS: Basophils # (A) 0.1 k/uL (0-0.2); Basophils % (A) 1 %; Eosinophils # (A) 0.3 k/uL (0-0.7); Eosinophils % (A) 3 %; HCT 45.9 % (34.0-46.0); HGB 14.8 gm/dL (11.4-16.0); Lymphocytes # (A) 2.9 k/uL (1.0-4.8); Lymphocytes % (A) 30 %; MCH 29.3 pg (25.0-35.0); MCHC 32.2 g/dL (31.0-37.0); MCV 90.8 fL (80.0-100.0); Monocytes # (A) 0.6 k/uL (0-1.0); Monocytes % (A) 6 %; Neutrophils # (A) 5.6 k/uL (1.3-7.7); Neutrophils % (A) 58 %; Platelet Count 223 k/uL (150-450); RBC 5.05 m/uL (3.80-5.40); RDW 13.4 % (11.5-15.5); WBC 9.7 k/uL (3.8-10.6)
[2023-09-12 11:35] LABS: African American GFR (CKD) 43 (>60 ml/min/1.73 sqM); Anion Gap 10 mmol/L; Blood Urea Nitrogen 33 mg/dL (7-17); Calcium 9.5 mg/dL (8.4-10.2); Carbon Dioxide 21 mmol/L (22-30); Chloride 102 mmol/L (98-107); Glucose 188 mg/dL (74-99); Non-African American GFR(CKD) 37 (>60 ml/min/1.73 sqM); Potassium 5.5 mmol/L (3.5-5.1); Sodium 133 mmol/L (137-145)
[2023-09-12 11:43] VITALS: RESP 16
[2023-09-12] MEDS ORDERED: LIDOCAINE 1% INJ 10MG/ML (20 ML MDV) ONE ×2 (13:27→13:57)
[2023-09-12] MEDS ORDERED: fentaNYL (PF) 50 MCG/ML 2 ML AMP ONE (13:32)
[2023-09-12] MEDS: MIDAZOLAM 2 MG/2 ML VIAL IVP ONE (13:47)
[2023-09-12] MEDS: fentaNYL (PF) 50 MCG/ML 2 ML AMP IVP ONE (13:47)
[2023-09-12] MEDS: LIDOCAINE 1% INJ 10MG/ML (20 ML MDV) SQ ONE ×2 (13:54→13:58)
[2023-09-12] MEDS: ceFAZolin 1 GM in SODIUM CHLORIDE 0.9% IRRIG BTL 250 ML IRRIGATION PRN (14:42)
[2023-09-12] MEDS ORDERED: SENNOSIDES 8.6 MG TAB PO PRN (16:34)
[2023-09-12] MEDS ORDERED: NON FORMULARY DRUG (Ondansetron Hcl [Zofran] 8 MG Tablet) PO PRN (16:34)
[2023-09-12] MEDS: SODIUM CHLORIDE 0.9% 1,000 ML IV SCH (17:22)
[2023-09-12 17:23] LABS: Glucose,Whole Blood 287 mg/dL (70-110)
[2023-09-12] MEDS: oxyCODONE ER 20 MG TAB.ER.12H PO SCH (20:46)
[2023-09-12] MEDS: INSULIN DETEMIR (LEVEMIR) 100 UNIT/ML SYR SQ SCH (20:47)
[2023-09-12] MEDS: ASPIRIN 81 MG PO SCH (20:47)
[2023-09-12 20:51] LABS: Glucose,Whole Blood 392 mg/dL (70-110)
[2023-09-13] MEDS ORDERED: ACETAMINOPHEN TAB 325 MG TAB PO PRN (01:52)
--- NOTE | 2023-09-13 02:04 | P.PCN ---
Date of Procedure: 09/12/23 Description of Procedure: CARDIOLOGY PROCEDURE NOTE Pay Station Attendant: Dr. Eagle Bernal HPI: Patient is a pleasant 67 year old female with history of s/p TAVR, permanent Afib and hypertension, CAD and obesity who has been having increased episodes of fatigue, dyspnea and exercise intolerance. She had a monitor performed which showed significant bradycardia where she was symptomatic and 3.7 second pause. She therefore was recommended to undergo permanent pacemaker implantation. Procedure performed: Insertion single chamber permanent pacemaker Site: Left subclavian Indications: Symptomatic bradycardia, sick sinus syndrome Complications: None Blood Loss: Minimal Description of Procedure: After the risks, benefits, and alternatives of the above-mentioned procedure was explained in detail with the patient, informed consent was obtained. The patient was taken to the cardiac catheterization suite where the left subclavian area was sterily prepped and draped in the usual fashion. One percent lidocaine was used to anesthetize the left subclavian area. Twenty milliliters of Isoview 370 contrast was injected into the left antecubital vein to allow for direct visualization of the left subclavian vein under fluoroscopy. A 1.5 inch incision was made utilizing a #15 blade in the left subclavian site. Hemostasis was made complete. Electrocautery along with digital blunt dissection was utilized to dissect to the level of the pectoralis muscle fascia and create a pocket large enough to accommodate the generator. A thin walled micro puncuture needle was used to cannulate the left subclavian vein. A guide-wire was inserted through the needle into the vascular lumen under fluoroscopic guidance. The needle was removed. A venous sheath and dilator were advanced over the guidewire into the vascular lumen under fluoroscopic guidance. The dilator and guidewire were then removed. A right ventricular bipolar lead was inserted into the sheath and advanced under fluoroscopic guidance into the right ventricle under fluoroscopic guidance. Adequate sensing and pacing thresholds were achieved and the lead was screwed into place in the RV apex. The sheath was then torn away. The lead collar was advanced and anchored into place utilizing #0 silk suture. The lead was then inserted into the appropriate position into the generator. The lead was then secured with the setscrew provided. The lead and generator were inserted into the pocket with the lead posterior. The subcutaneous tissue was approximated utilizing #2.0 and 3.0 vicryl in an interrupted stitch fashion. The dermal layer was approximated utilizing #4.0 vicryl. The area was cleansed with sterile saline and dried. A sterile 4x4 dressing was applied and the patient was transferred to the post catheterization holding area in stable and satisfactory condition. The patient tolerated the procedure well. Generator Data Electrophysiology Scientist: Privlo Brand: [id number] Orange Blossom XT SR MRI Model #: [id number] Serial#: [id number] Right Ventricular Bipolar Lead Data: Type: Active fixation lead Electrophysiology Scientist: Privlo Model #: 5076-52 Serial #: [id number] Stimulation Thresholds: Right Ventricular bipolar lead pacing and sensing thresholds Pulse Width: 0.4ms Voltage: 0.5 volts Impedance: 550 ohms R-wave sensin.4 mV Parameter Setting: Pacing mode is VVIR Lower rate 60 bpm Upper rate 130 bpm Impressions: 1. Successful implantation of a single chamber permanent pacemaker in the left pectoral site. Plan: 1. Routine post procedure care will be instituted as well as outpatient follow- up surveillance.
[2023-09-13 05:50] LABS: Glucose,Whole Blood 72 mg/dL (70-110)
[2023-09-13 07:53] VITALS: BP 107/74; PULSE 65; TEMP 97.8
--- NOTE | 2023-09-13 08:14 | XR ---
EXAMINATION TYPE: XR chest 1V portable DATE OF EXAM: 09/13/2023 HISTORY: Shortness of breath. COMPARISON: 12/21/2022 TECHNIQUE: Single view of the chest is submitted. FINDINGS: Demonstrated are scattered senescent parenchymal change. Single-lead pacer device demonstrates its d istal tip overlying the right ventricle. No evidence for pneumothorax. There is no evidence for focal infiltrate. The heart is stable. Hilar and mediastinal structures are within normal limits. Degenerative changes are seen of the dorsal spine. IMPRESSION: 1. Chronic changes without evidence for acute pulmonary disease.
[2023-09-13] MEDS: lisinopriL 5 MG TAB PO SCH (09:44)
[2023-09-13] MEDS: RIVAROXABAN 15 MG TAB PO SCH (09:44)
[2023-09-13] MEDS: DAPAGLIFLOZIN PROPANEDIOL 10 MG TABLET PO SCH (09:44)
--- NOTE | 2023-09-13 11:42 | P.DS ---
Providers Attending physician: Eagle Bernal DO Primary care physician: Red Sivla [facility] Course: patient is a pleasant 67-year-old female with history of aortic stenosis status post transcatheter aortic valve replacement, obesity, permanent atrial fibrillation who has been having symptomatic bradycardia and therefore recommended to undergo permanent pacemaker. Patient underwent permanent pacemaker placement 09/11 without incident and is doing well currently 09/12. Patient is stable for discharge home with interrogation showing stable parameters. Plan - Discharge Summary Discharge Rx Participant: No New Discharge Prescriptions: No Action lisinopriL [Zestril] 5 mg PO DAILY Insulin Detemir (Levemir) [Levemir] 60 units SQ HS Dulaglutide [Trulicity] 0.75 mg SQ WE Dapagliflozin Propanediol [Farxiga] 10 mg PO QAM Rivaroxaban [Xarelto] 20 mg PO DAILY oxyCODONE ER [OxyCONTIN] 20 mg PO QID PRN PRN Reason: Pain Aspirin [Adult Low Dose Aspirin EC] 81 mg PO HS ondansetron HCL [Ondansetron HCl] 8 mg PO DIRECTED PRN PRN Reason: Acid reflux Sennosides [Ex-Lax Maximum Strength] 25 mg PO DIRECTED PRN PRN Reason: Constipation Discharge Medication List Dapagliflozin Propanediol [Farxiga] 10 mg PO QAM 11/09/22 [History] Dulaglutide [Trulicity] 0.75 mg SQ WE 11/09/22 [History] Insulin Detemir (Levemir) [Levemir] 60 units SQ HS 11/09/22 [History] lisinopriL [Zestril] 5 mg PO DAILY 11/09/22 [History] Aspirin [Adult Low Dose Aspirin EC] 81 mg PO HS 09/11/23 [History] Rivaroxaban [Xarelto] 20 mg PO DAILY 09/11/23 [History] Sennosides [Ex-Lax Maximum Strength] 25 mg PO DIRECTED PRN 09/11/23 [History] ondansetron HCL [Ondansetron HCl] 8 mg PO DIRECTED PRN 09/11/23 [History] oxyCODONE ER [OxyCONTIN] 20 mg PO QID PRN 09/11/23 [History] Follow up Appointment(s)/Referral(s): Eagle Bernal DO [STAFF PHYSICIAN] - 09/20/23 2:00 pm (Appointment is at the [facility] located at Cardiology Office on [address]) Patient Instructions/Handouts: Moderate Sedation (DC), Pacemaker (DC)
[2023-09-13 12:05] LABS: Glucose,Whole Blood 157 mg/dL (70-110)
--- NOTE | 2023-09-14 05:12 | CONS ---
CONSULTATION CHIEF COMPLAINT: Cardiac arrhythmia and bradycardia. HISTORY OF PRESENT ILLNESS: This 67-year-old obese white female is in for an elective pacemaker implantation. She recently underwent a TAVR for aortic valve disease and has been doing well. REVIEW OF SYSTEMS: She denies any syncope, focal neurologic deficits, chest pain, shortness of breath, cough, orthopnea, PND, abdominal pain, urinary complaints, fever, chills, etc. Past medical history, family history personal and social histories are all found in detail in her admitting note. PHYSICAL EXAMINATION: VITAL SIGNS: Normal. HEENT: Head, ears, eyes, nose, mouth and throat are normal. CHEST: Clear. Operative site in the left upper anterior chest is dry with no bleeding. CARDIAC: Normal. ABDOMEN: Soft and protuberant. EXTREMITIES: Normal. NEUROLOGICAL: She is intact. DIAGNOSES: She is admitted to the hospital with diagnoses, 1. Bradycardia. 2. Recent TAVR. 3. History of hypertension. 4. Type 2 diabetes. RECOMMENDATIONS: None, she seems to be doing well. MMODL / IJN: [id number] /
--- NOTE | 2023-09-14 06:27 | PN ---
PROGRESS NOTE DATE OF SERVICE: 09/13/2023 CHIEF COMPLAINT: Status post pacemaker implantation. HISTORY OF PRESENT ILLNESS: This lady is doing well. She has had no pain, fever, chills, palpitations, etc. PHYSICAL EXAMINATION: VITAL SIGNS: Normal. CHEST: Clear. CARDIAC: Normal. ABDOMEN: Protuberant. IMPRESSION: 1. Status post pacemaker implantation. 2. Status post TAVR. PLAN: Probably home today. MMODL / IJN: [id number] /
== END 2023-09-13 13:54 | disposition home or self-care (01) ==
LOC: CATHEP 10:26 → 6NMEDSUR 14:45 → CATHEP 09-13 13:54
PROVIDERS: ATTEND Internal Medicine
DX: I49.5 Sick sinus syndrome (principal); I10 Essential (primary) hypertension; I25.10 Atherosclerotic heart disease of native coronary artery without angina pectoris; I35.0 Nonrheumatic aortic (valve) stenosis; I48.21 Permanent atrial fibrillation; E66.9 Obesity, unspecified; K21.9 Gastro-esophageal reflux disease without esophagitis; Z79.01 Long term (current) use of anticoagulants; Z79.82 Long term (current) use of aspirin; Z95.2 Presence of prosthetic heart valve; Z79.899 Other long term (current) drug therapy; Z88.2 Allergy status to sulfonamides; Z88.1 Allergy status to other antibiotic agents; Z88.8 Allergy status to other drugs, medicaments and biological substances; Z68.42 Body mass index [BMI] 45.0-49.9, adult
CPT/HCPCS: 33207; 80048; 85025; 71045; C1892; C1898; C1786; C1769; J2250; J0690 ×2; J2001; J3010; 33208